=== PATIENT | female | born 1985 | race Caucasian/White ===

== ENCOUNTER → 2016-12-04 | Outpatient (CLI) | payer OTHER ==
--- NOTE | 2016-12-04 12:25 | DIAGNOSTIC IMAGING REPORT ---
HYSTEROSALPINGOGRAM CLINICAL HISTORY: Infertility COMPARISON STUDY: No previous studies for comparison. FINDINGS: 24 seconds of fluoroscopic time was utilized. 3 intraprocedural fluoroscopic spot images were acquired. Both fallopian tubes filled a normal fashion. There is free spillage bilaterally. There is a slight arcuate configuration of the uterine cavity. IMPRESSION: The fallopian tubes are patent bilaterally Electronically signed by: Josiah Huber M.D. 12/04/2016 12:24 PM Dictated Date/Time: 12/04/2016 12:22 PM
--- NOTE | 2016-12-04 13:56 | OPERATIVE REPORT ---
DATE OF OPERATION: 12/04/2016 PREOPERATIVE DIAGNOSIS: Secondary infertility. POSTOPERATIVE DIAGNOSIS: Same. PROCEDURE PERFORMED: Hysterosalpingogram. SURGEON: Dr. Her. FINDINGS: Injection of radiopaque dye showed bilateral fill and spill of fallopian tubes. PROCEDURE IN DETAIL: The patient was taken to the fluoroscopy suite and had an HSG cannula placed into her cervix. The patient was positioned underneath fluoroscopy and under direct fluoroscopic guidance an HSG was performed with description as above. Instrumentation removed. The patient tolerated the procedure well. I attest to the content of the Intraoperative Record and any orders documented therein. Any exceptio ns are noted below.
== END | disposition home or self-care (01) ==
LOC: C.RAD 10:52
PROVIDERS: ATTEND Obstetrics & Gynecology
DX: Z31.41 Encounter for fertility testing (principal)

== ENCOUNTER → 2017-04-23 | Outpatient (CLI) | payer OTHER | END | disposition home or self-care (01) | LOC: C.LAB 11:36 | PROVIDERS: ATTEND Obstetrics & Gynecology | DX: N97.9 Female infertility, unspecified (principal) ==